=== PATIENT | female | born 1945 | race Caucasian/White ===

== ENCOUNTER 2016-09-17 20:29 | Emergency (ER) | payer MEDICARE ==
[~2016-09-17] VITALS: Ht 162.6 cm; Wt 84.5 kg
[2016-09-17 20:31] VITALS: BP 162/96
== END 2016-09-17 20:44 | disposition left against medical advice (07) ==
LOC: ED 20:38
DX: R03.0 Elevated blood-pressure reading, without diagnosis of hypertension (principal); Z53.21 Procedure and treatment not carried out due to patient leaving prior to being seen by health care provider

== ENCOUNTER → 2018-02-25 | Outpatient (CLI) | payer MEDICARE | END | disposition home or self-care (01) | LOC: CFH 09:33 | PROVIDERS: ATTEND Nurse Practitioner | DX: Z12.31 Encounter for screening mammogram for malignant neoplasm of breast (principal) | CPT/HCPCS: 77063; 77067 ==

== ENCOUNTER → 2018-09-17 | Outpatient (CLI) | payer MEDICARE | END | disposition home or self-care (01) | LOC: CFH 11:44 | PROVIDERS: ATTEND Nurse Practitioner | DX: M85.88 Other specified disorders of bone density and structure, other site (principal); M81.0 Age-related osteoporosis without current pathological fracture; N95.8 Other specified menopausal and perimenopausal disorders | CPT/HCPCS: 77080 ==

== ENCOUNTER 2018-12-10 13:28 | Outpatient (CLI) | payer MEDICARE | END 2018-12-10 23:59 | disposition home or self-care (01) | LOC: CFH 13:28 | PROVIDERS: ATTEND Internal Medicine Nephrology | DX: I12.9 Hypertensive chronic kidney disease with stage 1 through stage 4 chronic kidney disease, or unspecified chronic kidney disease (principal); N18.3 Chronic kidney disease, stage 3 (moderate); N31.9 Neuromuscular dysfunction of bladder, unspecified | CPT/HCPCS: 76770 ==

== ENCOUNTER 2019-11-10 14:22 | Observation (INO) | payer MEDICARE ==
[~2019-11-10] VITALS: Ht 160 cm; Wt 101.5 kg
--- NOTE | 2019-11-10 14:34 | NUR ---
THIS IS A 74 YEAR OLD FEMALE WHO WAS BIB BY AMBULANCE DUE TO SYNCOPAL EPISODE X 2 AT [facility]. PT STATES SHE HAD THIS PRIOR BUT NEVER FOLLOW UP WITH MD. PT HAS HX OF HTN, AND "STOMACH" ISSUES. PT PLACED ON [employer]ICER, SINUS MALCOM 50-57. CONTINOUS SPO2 AND CYCLE VS.
--- NOTE | 2019-11-10 14:45 | NUR ---
PT DESAT TO 82% ON RA, PLACED ON 2LNC.
[2019-11-10 15:13] LABS: BASOPHILS % (AUTO) 0 % (0-1); EOSINOPHILS # (AUTO) 0.18 x10^3/uL (0-0.4); EOSINOPHILS % (AUTO) 3 % (1-7); LYMPHOCYTES # (AUTO) 1.48 x10^3/uL (1-3.4); LYMPHOCYTES % (AUTO) 23 % (22-44); MD NO; MEAN CORPUSCULAR HEMOGLOBIN 29.6 pg (27.0-34.8); MEAN CORPUSCULAR HGB CONC 32.8 g/dL (32.4-35.8); MEAN CORPUSCULAR VOLUME 90.3 fL (80-100); MEAN PLATELET VOLUME 7.9 fL (7.4-10.4); MONOCYTES # (AUTO) 0.04 x10^3/uL (0.2-0.8); MONOCYTES % (AUTO) 1 % (2-9); NEUTROPHILS # (AUTO) 4.79 x10^3/uL (1.8-6.8); NEUTROPHILS % (AUTO) 74 % (42-75); PLATELET COUNT 247 x10^3/uL (130-400); RED BLOOD COUNT 4.69 x10^6/uL (3.82-5.3); RED CELL DISTRIBUTION WIDTH 14.4 % (9.6-15.2)
[2019-11-10 15:23] LABS: ALANINE AMINOTRANSFERASE 32 U/L (12-78); ALBUMIN 3.1 g/dL (3.4-5.0); ANION GAP 6 mmol/L (5-15); CALCIUM 7.8 mg/dL (8.5-10.1); CHLORIDE 111 mmol/L (98-107); CREATININE 1.09 mg/dL (0.55-1.02)
[2019-11-10 15:26] LABS: ALKALINE PHOSPHATASE 91 U/L (45-117); BILIRUBIN,TOTAL 0.5 mg/dL (0.2-1.0); TOTAL PROTEIN 6.5 g/dL (6.4-8.2)
--- NOTE | 2019-11-10 15:31 | NUR ---
PT UP TO BATHROOM WITH SBA, PT INCONTIENT OF LARGE AMOUNT OF LOOSE STOOL. ASSIST CLEAN UP AND BACK TO BED, UNABLE TO OBTAIN URINE AT THIS TIME. BACK ANANDA BED, GAVE WATER.
--- NOTE | 2019-11-10 16:35 | NUR ---
PT SLEEPING RESP EVEN AND UNLABORED.
[2019-11-10 17:24] LABS: MICROSCOPIC NOT IND
--- NOTE | 2019-11-10 17:25 | NUR ---
PT DESATS TO 86% WHILE SLEEPING. PT STATES SHE DID HAVE A C-PAP, BUT STOPPED WEARING IT DUE TO CLAUSTROPHOBIA. PT AGREED TO STAY IN HOSPITAL ADMIT.
--- NOTE | 2019-11-10 18:14 | NUR ---
PT AMBULATORY WITH STEADY GAIT AND ASSISTANCE TO BATHROOM
--- NOTE | 2019-11-10 18:56 | NUR ---
BEDSIDE REPORT TO ARTURO VICTORIA, PLAN OF CARE DISCUSSED
[2019-11-10] MEDS ORDERED: ACETAMINOPHEN 325 MG TABLET PO PRN (19:00)
[2019-11-10] MEDS ORDERED: hydrALAzine 20 MG/ML, 1ML IVPush PRN (19:00)
[2019-11-10] MEDS ORDERED: DOCUSATE 100 MG CAPSULE PO PRN (19:00)
[2019-11-10] MEDS ORDERED: ONDANSETRON 2MG/ML, 2ML IVPush PRN (19:00)
--- NOTE | 2019-11-10 19:05 | NUR ---
BEDSIDE REPORT RECEIVED FROM ESME JORDAN. PT LAYING IN BED, VSS, RESPIRATIONS EVEN AND UNLABORED. PT INQUIRING ABOUT FOOD, UPDATED ON POC, AND ALL QUESTIONS ANSWERED AT THIS TIME. DAUGHTER AT BEDSIDE. WILL CONTINUE TO MONITOR.
--- NOTE | 2019-11-10 19:16 | NUR ---
REPORT GIVEN TO ABDELRAHMAN ASKEW RN.
[2019-11-10 19:27] LABS: TROPONIN I < 0.015 ng/mL (0.000-0.045)
[2019-11-10 20:07] VITALS: BP 155/85
[2019-11-10] MEDS ORDERED: DIPHENHYDRAMINE 50 MG CAPSULE PO ONE (21:30)
[2019-11-10] MEDS: ENOXAPARIN 40 MG/0.4 ML SQ SCH (21:49)
[2019-11-10] MEDS ORDERED: ATOR10TA9 PO (23:44)
[2019-11-10] MEDS ORDERED: CARV6.25 PO (23:44)
[2019-11-11] VITALS (7 sets, daily range): BP systolic 123–159; BP diastolic 66–99
[2019-11-11 01:05] LABS: TROPONIN I < 0.015 ng/mL (0.000-0.045)
[2019-11-11 05:51] LABS: BASOPHILS # (AUTO) 0.03 x10^3/uL (0-0.1); BASOPHILS % (AUTO) 0 % (0-1); EOSINOPHILS # (AUTO) 0.14 x10^3/uL (0-0.4); EOSINOPHILS % (AUTO) 2 % (1-7); LYMPHOCYTES # (AUTO) 1.62 x10^3/uL (1-3.4); LYMPHOCYTES % (AUTO) 24 % (22-44); MD NO; MEAN CORPUSCULAR HEMOGLOBIN 29.4 pg (27.0-34.8); MEAN CORPUSCULAR HGB CONC 32.5 g/dL (32.4-35.8); MEAN CORPUSCULAR VOLUME 90.6 fL (80-100); MEAN PLATELET VOLUME 8.1 fL (7.4-10.4); MONOCYTES # (AUTO) 0.48 x10^3/uL (0.2-0.8); MONOCYTES % (AUTO) 7 % (2-9); NEUTROPHILS # (AUTO) 4.63 x10^3/uL (1.8-6.8); NEUTROPHILS % (AUTO) 67 % (42-75); PLATELET COUNT 218 x10^3/uL (130-400); RED BLOOD COUNT 4.42 x10^6/uL (3.82-5.3); RED CELL DISTRIBUTION WIDTH 14.6 % (9.6-15.2)
[2019-11-11 05:57] LABS: ANION GAP 2 mmol/L (5-15); CHLORIDE 109 mmol/L (98-107); CREATININE 0.98 mg/dL (0.55-1.02)
[2019-11-11] MEDS: ENOXAPARIN 40 MG/0.4 ML SQ SCH (20:17)
[2019-11-12 00:11] VITALS: BP 146/82
[2019-11-12 06:33] VITALS: BP 146/85
[2019-11-12 12:18] VITALS: BP 160/89
== END 2019-11-12 14:36 | disposition home or self-care (01) ==
LOC: ED 16:59 → EDIP 18:11 → INTOOBSV 18:11 → 4WST 19:39 → DCLOUNGE 11-12 14:27
PROVIDERS: ADMIT Hospitalist; ATTEND Hospitalist
DX: R55 Syncope and collapse (principal); E86.0 Dehydration; I12.9 Hypertensive chronic kidney disease with stage 1 through stage 4 chronic kidney disease, or unspecified chronic kidney disease; N18.4 Chronic kidney disease, stage 4 (severe); N17.9 Acute kidney failure, unspecified; G47.30 Sleep apnea, unspecified; R53.1 Weakness; J45.909 Unspecified asthma, uncomplicated; Z90.710 Acquired absence of both cervix and uterus; Z91.19 Patient's noncompliance with other medical treatment and regimen; Z88.0 Allergy status to penicillin; Z79.899 Other long term (current) drug therapy
CPT/HCPCS: 36415; 70450; 71045; 80048; 80053; 81003; 83036; 83735; 84443; 84484; 85018; 85025; 93005; 93306; 96372; 96374; 97161; 97166; 99285; G0378; J1650; J2405

== ENCOUNTER 2019-12-17 17:42 | Emergency (ER) | payer MEDICARE ==
[~2019-12-17] VITALS: Ht 162.6 cm; Wt 90.0 kg
[~2019-12-17 17:42] MED LIST: ATOR10TA9 PO; CARV6.25 PO
[2019-12-17 18:19] LABS: BASOPHILS # (AUTO) 0.02 x10^3/uL (0-0.1); BASOPHILS % (AUTO) 0 % (0-1); EOSINOPHILS # (AUTO) 0.03 x10^3/uL (0-0.4); EOSINOPHILS % (AUTO) 1 % (1-7); LYMPHOCYTES # (AUTO) 1.45 x10^3/uL (1-3.4); LYMPHOCYTES % (AUTO) 27 % (22-44); MD NO; MEAN CORPUSCULAR HEMOGLOBIN 28.9 pg (27.0-34.8); MEAN CORPUSCULAR HGB CONC 32.9 g/dL (32.4-35.8); MEAN CORPUSCULAR VOLUME 88.1 fL (80-100); MONOCYTES # (AUTO) 0.45 x10^3/uL (0.2-0.8); MONOCYTES % (AUTO) 8 % (2-9); NEUTROPHILS # (AUTO) 3.39 x10^3/uL (1.8-6.8); NEUTROPHILS % (AUTO) 63 % (42-75); PLATELET COUNT 230 x10^3/uL (130-400); RED BLOOD COUNT 5.32 x10^6/uL (3.82-5.3); RED CELL DISTRIBUTION WIDTH 14.9 % (9.6-15.2)
[2019-12-17 18:31] LABS: ANION GAP 10 mmol/L (5-15); CHLORIDE 106 mmol/L (98-107)
--- NOTE | 2019-12-17 18:37 | NUR ---
PT RESTING IN GOWN IN [facility]. PT ATTACHED TO VS AND CARDIAC MONITORS. VSS AT THIS TIME. PT EDUCATED ON ER PROCESS AND POC AND VERBALIZES UNDERSTANDING. CALL LIGHT IS WITHIN REACH AT THIS TIME. EKG PERFORMED IN TRIAGE.
[2019-12-17 18:38] LABS: D-DIMER (DIC) 0.65 ug/mlFEU (0.00-0.52)
[2019-12-17 18:39] LABS: ALANINE AMINOTRANSFERASE 44 U/L (12-78); ALKALINE PHOSPHATASE 76 U/L (45-117); BILIRUBIN,TOTAL 0.6 mg/dL (0.2-1.0); CREATININE 0.98 mg/dL (0.55-1.02); TOTAL PROTEIN 7.5 g/dL (6.4-8.2)
--- NOTE | 2019-12-17 18:45 | NUR ---
REPORT OF PT TO ESME HUBER AT THIS TIME. ALL QUESTIONS ANSWERED.
[2019-12-17] MEDS ORDERED: CEFTRIAXONE PMX 1GM/50ML 50 ML IV ONE (19:00)
[2019-12-17] MEDS ORDERED: AZITHROMYCIN 500 MG in SODIUM CHLORIDE 0.9% 250 ML IV ONE (19:00)
--- NOTE | 2019-12-17 19:00 | NUR ---
Pt resting quietly and comfortably, waiting for ct results. Pt voices no complaints at this time.
[2019-12-17] MEDS ORDERED: CEFTRIAXONE PMX 1GM/50ML 50 ML ONE (19:07)
--- NOTE | 2019-12-17 19:39 | NUR ---
Pt keeps removing NC oxygen and sat's drop to 88%. Pt advised to keep oxygen in nose.
[2019-12-17] MEDS ORDERED: SODIUM CHLORIDE FLUSH 10ML SYR IVF PRN (20:00)
--- NOTE | 2019-12-17 20:51 | NUR ---
Pt declined to have CTA chest completed. Dr. Melendez notified.
--- NOTE | 2019-12-17 21:22 | NUR ---
mt: Brother would like to be updated - Crow [phone]
--- NOTE | 2019-12-17 21:24 | NUR ---
Pt did not want to wait till Zithromax Abx finished infusing, received about 200ml of 250ml dose.
[2019-12-17 21:25] VITALS: BP 156/104
--- NOTE | 2019-12-17 21:30 | NUR ---
Pt signed AMA form, which was included in discharge papers filed.
== END 2019-12-17 21:31 | disposition home or self-care (01) ==
LOC: ED 18:27 → EDIP 19:47 → UNDOADMIN 19:47 → ED 21:31
DX: U07.1 COVID-19 (principal); B34.9 Viral infection, unspecified; R06.00 Dyspnea, unspecified; R00.0 Tachycardia, unspecified; R07.89 Other chest pain; R09.02 Hypoxemia; R05 Cough; M79.10 Myalgia, unspecified site; I10 Essential (primary) hypertension; J45.909 Unspecified asthma, uncomplicated; Z88.0 Allergy status to penicillin; Z88.9 Allergy status to unspecified drugs, medicaments and biological substances; Z79.899 Other long term (current) drug therapy
CPT/HCPCS: 36415; 71045; 80053; 82728; 83605; 83615; 84145; 85025; 85049; 85379; 85384; 85610; 85730; 86140; 87040; 93005; 96365; 96367; 99285; J0456; J0696; J7050

== ENCOUNTER 2020-01-31 09:27 | Emergency (ER) | payer MEDICARE ==
[~2020-01-31] VITALS: Ht 162.6 cm; Wt 91.5 kg
[~2020-01-31 09:27] MED LIST changes: +ALPR0.254 PO; +ASCO500T9 PO; +ATOR40TA78 PO; +CHOL500045 PO; +FAMO20TA7 PO; +LIDO700A20 TD; +POLY17PO5 PO; +THIA100T67 PO; +ZINC220C7 PO
[2020-01-31 10:33] LABS: BASOPHILS # (AUTO) 0.03 x10^3/uL (0-0.1); BASOPHILS % (AUTO) 0 % (0-1); EOSINOPHILS # (AUTO) 0.09 x10^3/uL (0-0.4); EOSINOPHILS % (AUTO) 1 % (1-7); LYMPHOCYTES # (AUTO) 2.32 x10^3/uL (1-3.4); LYMPHOCYTES % (AUTO) 28 % (22-44); MD NO; MEAN CORPUSCULAR HEMOGLOBIN 28.7 pg (27.0-34.8); MEAN CORPUSCULAR HGB CONC 31.5 g/dL (32.4-35.8); MEAN PLATELET VOLUME 7.7 fL (7.4-10.4); MONOCYTES # (AUTO) 0.67 x10^3/uL (0.2-0.8); MONOCYTES % (AUTO) 8 % (2-9); NEUTROPHILS # (AUTO) 5.17 x10^3/uL (1.8-6.8); NEUTROPHILS % (AUTO) 62 % (42-75); PLATELET COUNT 366 x10^3/uL (130-400); RED BLOOD COUNT 4.83 x10^6/uL (3.82-5.3); RED CELL DISTRIBUTION WIDTH 16.5 % (9.6-15.2)
[2020-01-31 10:42] LABS: ALBUMIN 3.3 g/dL (3.4-5.0); ANION GAP 6 mmol/L (5-15); CALCIUM 8.9 mg/dL (8.5-10.1); CHLORIDE 114 mmol/L (98-107); CREATININE 1.17 mg/dL (0.55-1.02)
[2020-01-31 11:17] VITALS: BP 107/72
== END 2020-01-31 11:35 | disposition home or self-care (01) ==
LOC: ED 10:27
DX: R53.1 Weakness (principal); R05 Cough; Z20.828 Contact with and (suspected) exposure to other viral communicable diseases; R53.83 Other fatigue; R00.0 Tachycardia, unspecified; J45.909 Unspecified asthma, uncomplicated; I10 Essential (primary) hypertension
CPT/HCPCS: 36415; 71045; 80048; 82040; 83605; 84145; 85025; 87040; 87635; 93005; 99285

== ENCOUNTER → 2020-12-14 | Outpatient (CLI) | payer MEDICARE | END | disposition home or self-care (01) | LOC: CFH 13:55 | PROVIDERS: ATTEND Nurse Practitioner | DX: Z12.31 Encounter for screening mammogram for malignant neoplasm of breast (principal) | CPT/HCPCS: 77063; 77067 ==

== ENCOUNTER → 2020-12-30 | Outpatient (CLI) | payer MEDICARE, OTHER | END | disposition home or self-care (01) | LOC: RAD 08:04 | PROVIDERS: ATTEND Nurse Practitioner | DX: M25.551 Pain in right hip (principal) ==